=== PATIENT | male | born 1950 | race Caucasian/White ===

== ENCOUNTER 2020-03-12 04:44 | Emergency (ER) | payer MEDICARE ==
[~2020-03-12] VITALS: Ht 190.5 cm; Wt 105.0 kg
[2020-03-12] MEDS ORDERED: MAGNESIUM SULFATE PMX 2GM/50ML 0 ML ONE (04:47)
[2020-03-12] MEDS ORDERED: DILTIAZEM 125 MG in SODIUM CHLORIDE 0.9% 100 ML IV SCH (04:51)
[2020-03-12] MEDS ORDERED: SODIUM CHLORIDE FLUSH 10ML SYR IVF ONE (05:00)
[2020-03-12] MEDS ORDERED: DILTIAZEM 5 MG/ML, 5ML IV ONE (05:00)
--- NOTE | 2020-03-12 05:08 | NUR ---
Patient BIB EMS from [facility] c/o CP/SOB with HR in the 180s; afib with RVR. Patient states this all started last night when he started vomiting. Patient has a hx of afib. Patient was cardioverted x2 at previous facility. He received ASA, Morphine, Metoprolol, and Mag. Patient now c/o 11/01 substernal CP. Denies N/V, SOB. Patient is in NAD. Respirations even and unlabored.
[2020-03-12 05:29] LABS: BASOPHILS # (AUTO) 0.01 x10^3/uL (0-0.1); BASOPHILS % (AUTO) 0 % (0-1); EOSINOPHILS # (AUTO) 0.01 x10^3/uL (0-0.4); EOSINOPHILS % (AUTO) 0 % (1-7); LYMPHOCYTES # (AUTO) 0.92 x10^3/uL (1-3.4); LYMPHOCYTES % (AUTO) 15 % (22-44); MD NO; MEAN CORPUSCULAR HEMOGLOBIN 29.2 pg (27.5-34.5); MEAN CORPUSCULAR HGB CONC 33.6 g/dL (33.2-36.2); MEAN CORPUSCULAR VOLUME 86.9 fL (81-97); MEAN PLATELET VOLUME 7.7 fL (7.4-10.4); MONOCYTES # (AUTO) 0.38 x10^3/uL (0.2-0.8); MONOCYTES % (AUTO) 6 % (2-9); NEUTROPHILS # (AUTO) 4.78 x10^3/uL (1.8-6.8); NEUTROPHILS % (AUTO) 78 % (42-75); PLATELET COUNT 254 x10^3/uL (130-400); RED BLOOD COUNT 4.42 x10^6/uL (4.38-5.82)
[2020-03-12] MEDS ORDERED: FENO160T PO (05:35)
[2020-03-12] MEDS ORDERED: REPA1TAB6 PO (05:35)
[2020-03-12] MEDS ORDERED: METF1000 PO (05:35)
[2020-03-12] MEDS ORDERED: ROSU40TA PO (05:35)
[2020-03-12] MEDS ORDERED: CHOL10003 PO (05:35)
[2020-03-12] MEDS ORDERED: PANT40TA5 PO (05:35)
[2020-03-12] MEDS ORDERED: NITR0.4T28 SL (05:35)
[2020-03-12] MEDS ORDERED: VITA1CAP PO (05:35)
[2020-03-12] MEDS ORDERED: METO-93 PO (05:35)
[2020-03-12] MEDS ORDERED: FLEC150T PO (05:35)
[2020-03-12] MEDS ORDERED: RIVA20TA PO (05:35)
[2020-03-12 05:42] LABS: ALANINE AMINOTRANSFERASE 25 U/L (12-78); ALBUMIN 3.3 g/dL (3.4-5.0); ANION GAP 6 mmol/L (5-15); CALCIUM 8.5 mg/dL (8.5-10.1); CHLORIDE 105 mmol/L (98-107); CREATININE 0.87 mg/dL (0.7-1.3)
[2020-03-12 05:46] LABS: ALKALINE PHOSPHATASE 33 U/L (45-117); BILIRUBIN,TOTAL 0.2 mg/dL (0.2-1.0); TOTAL PROTEIN 6.6 g/dL (6.4-8.2)
[2020-03-12 05:49] LABS: TROPONIN I 0.146 ng/mL (0.000-0.045)
--- NOTE | 2020-03-12 06:15 | NUR ---
MT: Cardiology paged
--- NOTE | 2020-03-12 06:51 | NUR ---
Report received from [facility]. Patient is resting comfortably in bed, no needs at this time.
--- NOTE | 2020-03-12 07:12 | NUR ---
Steady bedside urinal use.
--- NOTE | 2020-03-12 07:30 | NUR ---
PT REQUESTING TO SPEAK WITH MD, PT FEELS HE IS READY FOR DISCHARGE. MD NOTIFIED
--- NOTE | 2020-03-12 07:43 | NUR ---
Cardiology MD ROSSI AT BEDSIDE FOR EVALUATION.
--- NOTE | 2020-03-12 07:51 | NUR ---
PT STILL REQUESTS TO LEAVE, AWARE OF AMA PAPERWORK. VINI ANDERSON AND CARDIO MD ROSSI PROVIDED DICSUSSION WITH PT.
[2020-03-12 08:02] VITALS: BP 114/82
--- NOTE | 2020-03-12 08:05 | NUR ---
AMA PAPERWORK SIGNED. PT HAS NO QUESTIONS AT THIS TIME.
== END 2020-03-12 09:13 | disposition left against medical advice (07) ==
LOC: ED 05:29
DX: I48.20 Chronic atrial fibrillation, unspecified (principal); I47.2 Ventricular tachycardia; I21.4 Non-ST elevation (NSTEMI) myocardial infarction; R07.89 Other chest pain; E11.9 Type 2 diabetes mellitus without complications; Z87.11 Personal history of peptic ulcer disease
CPT/HCPCS: 36415; 71045; 80053; 84484; 85025; 93005; 96365; 96366; 96376; 99285